=== PATIENT | female | born 1960 | race Hispanic/Latino ===

== ENCOUNTER 2021-04-18 19:47 | Emergency (ER) | payer OTHER ==
[~2021-04-18] VITALS: Ht 157.5 cm; Wt 79.0 kg
[~2021-04-18 19:47] MED LIST: ASPIRIN EC81 MG PO; GLYNASE3 MG PO; JANUVIA100 MG PO; METFORMIN500 MG PO; PRAVACHOL20 MG PO; XIGDUO PO
[2021-04-18 20:38] LABS: HEMATOCRIT 35.9 % (37.0-47.0); IMMATURE GRANULOCYTES 0.4 % (0.0-5.0); MEAN CORPUSCULAR HGB 28.9 pG CALC (26.0-32.0); MEAN CORPUSCULAR HGB CONC 32.9 g/dL CAL (32.0-36.0); NEUT# 14.36 thou/uL (2.00-7.15); RED BLOOD COUNT 4.08 mill/uL (4.20-5.60); RED CELL DISTRI WIDTH 13.1 % (11.5-15.5)
[2021-04-18 20:39] LABS: HEMOGLOBIN 11.8 g/dl (12.0-16.0)
[2021-04-18 20:58] LABS: ALBUMIN 3.6 g/dL (3.2-5.0); ALKALINE PHOSPHATASE 132 u/l (38-126); BUN 19 mg/dL (8-23); BUN/CREATININE RATIO 31 (12-20 (CALC)); CARBON DIOXIDE 26 mmol/l (22-30); CHLORIDE 97 mmol/l (95-108); CREATININE 0.6 mg/dL (0.5-1.0); GFR > 60 ML/MIN (>=60 (CALC)); GFR FOR AFR.AMER. > 60 ML/MIN (>=60 (CALC)); POTASSIUM 4.5 mmol/l (3.5-5.1); SGOT/AST 27 u/l (9-36); TOTAL PROTEIN 6.8 g/dL (6.3-8.2)
[2021-04-18 21:02] LABS: ANION GAP 11 (6-22 (CALC)); BILIRUBIN, TOTAL 0.9 mg/dL (0.0-1.4); SODIUM 129 mmol/l (137-146)
[2021-04-18 23:12] LABS: URINE BILIRUBIN - DIPSTICK NEGATIVE (NEGATIVE); URINE BLOOD DIPSTICK NEGATIVE (NEGATIVE); URINE COLOR YELLOW; URINE GLUCOSE - DIPSTICK >=1000 mg/dL (NEGATIVE); URINE KETONE NEGATIVE (NEGATIVE); URINE LEUK ESTERASE NEGATIVE (NEGATIVE); URINE PH 6.5 (4.5-8.0); URINE PROTEIN - DIPSTICK NEGATIVE (NEG-TRACE); URINE SPECIFIC GRAVITY <=1.005; URINE UROBILINOGEN - DIPSTICK 0.2 E.U./dL (0.2)
[2021-04-18 23:13] LABS: URINE NITRITE - DIPSTICK NEGATIVE (Negative)
[2021-04-19] MEDS ORDERED: AUGMENTIN500TAB PO (00:44)
[2021-04-19 01:00] VITALS: BP 113/53
== END 2021-04-19 01:00 | disposition home or self-care (01) ==
LOC: ED 19:47
PROVIDERS: Emergency Medicine
DX: R50.9 Fever, unspecified (principal); D72.829 Elevated white blood cell count, unspecified; R10.30 Lower abdominal pain, unspecified; N32.9 Bladder disorder, unspecified; Z20.822 Contact with and (suspected) exposure to COVID-19
CPT/HCPCS: Q9967

== ENCOUNTER 2023-11-24 12:03 | Inpatient (IN) | payer MEDICARE, MEDICAID ==
[~2023-11-24] VITALS: Ht 157.5 cm; Wt 72.0 kg
[2023-11-24] VITALS (7 sets, daily range): BP systolic 125–143; BP diastolic 48–73
[~2023-11-24 12:03] MED LIST changes: +AUGMENTIN500TAB PO
[2023-11-24 13:16] LABS: BASO% 0.4 % (0-3); EOS% 0.4 % (0-8); HEMATOCRIT 34.1 % (37.0-47.0); HEMOGLOBIN 11.3 g/dl (12.0-16.0); IMMATURE GRANULOCYTES 0.3 % (0.0-5.0); MEAN CELL VOLUME 85.9 fL CALC (80.0-100.0); MEAN CORPUSCULAR HGB 28.5 pG CALC (26.0-32.0); MEAN CORPUSCULAR HGB CONC 33.1 g/dL CAL (32.0-36.0); MONO% 4.3 % (2-13); NEUT# 9.74 thou/uL (2.00-7.15); NEUT% 78.6 % (42-76); RED BLOOD COUNT 3.97 mill/uL (4.20-5.60)
[2023-11-24 13:25] LABS: ALBUMIN 3.7 g/dL (3.2-5.0); ALKALINE PHOSPHATASE 133 u/l (38-126); BUN 17 mg/dL (8-23); BUN/CREATININE RATIO 23 (12-20 (CALC)); CARBON DIOXIDE 23 mmol/l (22-30); CHLORIDE 97 mmol/l (95-108); CREATININE 0.7 mg/dL (0.5-1.0); GFR FOR AFR.AMER. > 60 ML/MIN (>=60 (CALC)); GFR OTHER RACES > 60 ML/MIN (>=60 (CALC)); POTASSIUM 4.8 mmol/l (3.5-5.1); SGOT/AST 17 u/l (9-36)
[2023-11-24 13:31] LABS: ANION GAP 12 (6-22 (CALC)); BILIRUBIN, TOTAL 0.4 mg/dL (0.02-1.3); SODIUM 127 mmol/l (137-146)
[2023-11-24] MEDS ORDERED: LISINOPRIL20 M1 PO (14:08)
[2023-11-24] MEDS ORDERED: METFORMIN HCL1000 MG PO (14:09)
[2023-11-24] MEDS ORDERED: LEVOTHYROXIN75 MC1 PO (14:10)
[2023-11-24] MEDS ORDERED: AMLODIPINE BESYL5 MG PO (14:11)
[2023-11-24] MEDS ORDERED: GLIMEPIRIDE4 MG PO (14:12)
[2023-11-25] VITALS (9 sets, daily range): BP systolic 118–151; BP diastolic 49–68
[2023-11-25 04:39] LABS: BASO% 0.8 % (0-3); EOS% 0.9 % (0-8); HEMATOCRIT 36.2 % (37.0-47.0); HEMOGLOBIN 11.5 g/dl (12.0-16.0); IMMATURE GRANULOCYTES 0.4 % (0.0-5.0); LYMPH% 20.2 % (15-41); MEAN CORPUSCULAR HGB 28.6 pG CALC (26.0-32.0); MEAN CORPUSCULAR HGB CONC 31.8 g/dL CAL (32.0-36.0); MONO% 5.7 % (2-13); NEUT# 5.71 thou/uL (2.00-7.15); RED BLOOD COUNT 4.02 mill/uL (4.20-5.60); RED CELL DISTRI WIDTH 13.5 % (11.5-15.5)
[2023-11-25 05:04] LABS: ANION GAP 12 (6-22 (CALC)); BUN 12 mg/dL (8-23); BUN/CREATININE RATIO 20 (12-20 (CALC)); CARBON DIOXIDE 21 mmol/l (22-30); CHLORIDE 105 mmol/l (95-108); CREATININE 0.6 mg/dL (0.5-1.0); GFR FOR AFR.AMER. > 60 ML/MIN (>=60 (CALC)); GFR OTHER RACES > 60 ML/MIN (>=60 (CALC)); POTASSIUM 5.1 mmol/l (3.5-5.1); SODIUM 133 mmol/l (137-146)
[2023-11-26 03:21] VITALS: BP 156/57
[2023-11-26 05:54] LABS: BASO% 0.5 % (0-3); EOS% 0.4 % (0-8); HEMOGLOBIN 9.9 g/dl (12.0-16.0); IMMATURE GRANULOCYTES 0.3 % (0.0-5.0); LYMPH% 17.1 % (15-41); MEAN CELL VOLUME 86.3 fL CALC (80.0-100.0); MEAN CORPUSCULAR HGB 28.3 pG CALC (26.0-32.0); MEAN CORPUSCULAR HGB CONC 32.8 g/dL CAL (32.0-36.0); NEUT# 7.42 thou/uL (2.00-7.15); NEUT% 74.7 % (42-76); RED BLOOD COUNT 3.5 mill/uL (4.20-5.60); RED CELL DISTRI WIDTH 12.8 % (11.5-15.5)
[2023-11-26 06:27] LABS: ANION GAP 10 (6-22 (CALC)); BUN 5 mg/dL (8-23); BUN/CREATININE RATIO 10 (12-20 (CALC)); CARBON DIOXIDE 21 mmol/l (22-30); CHLORIDE 105 mmol/l (95-108); CREATININE 0.6 mg/dL (0.5-1.0); GFR FOR AFR.AMER. > 60 ML/MIN (>=60 (CALC)); GFR OTHER RACES > 60 ML/MIN (>=60 (CALC)); MAGNESIUM 1.3 mg/dL (1.6-2.3); POTASSIUM 4.3 mmol/l (3.5-5.1); SODIUM 131 mmol/l (137-146)
[2023-11-26 06:37] LABS: HEMATOCRIT 30.2 % (37.0-47.0)
[2023-11-26 08:00] VITALS: BP 131/54
[2023-11-26 08:49] VITALS: BP 131/54
[2023-11-26 16:23] VITALS: BP 128/48
[2023-11-26 19:34] VITALS: BP 135/55
[2023-11-27 03:21] VITALS: BP 127/58
[2023-11-27 06:10] LABS: BASO% 0.5 % (0-3); EOS% 1.5 % (0-8); HEMATOCRIT 29.2 % (37.0-47.0); HEMOGLOBIN 9.8 g/dl (12.0-16.0); IMMATURE GRANULOCYTES 0.3 % (0.0-5.0); LYMPH% 23.6 % (15-41); MEAN CELL VOLUME 87.7 fL CALC (80.0-100.0); MEAN CORPUSCULAR HGB 29.4 pG CALC (26.0-32.0); MEAN CORPUSCULAR HGB CONC 33.6 g/dL CAL (32.0-36.0); MONO% 6.8 % (2-13); NEUT# 4.92 thou/uL (2.00-7.15); NEUT% 67.3 % (42-76); RED BLOOD COUNT 3.33 mill/uL (4.20-5.60)
[2023-11-27 06:26] LABS: ANION GAP 9 (6-22 (CALC)); BUN 5 mg/dL (8-23); BUN/CREATININE RATIO 8 (12-20 (CALC)); CARBON DIOXIDE 21 mmol/l (22-30); CHLORIDE 107 mmol/l (95-108); CREATININE 0.6 mg/dL (0.5-1.0); GFR FOR AFR.AMER. > 60 ML/MIN (>=60 (CALC)); GFR OTHER RACES > 60 ML/MIN (>=60 (CALC)); SODIUM 134 mmol/l (137-146)
[2023-11-27 06:30] VITALS: BP 128/62
[2023-11-27 15:00] VITALS: BP 135/54
[2023-11-27 19:17] VITALS: BP 113/46
[2023-11-27 20:00] VITALS: BP 113/46
[2023-11-28 04:16] VITALS: BP 134/58
[2023-11-28 04:52] VITALS: BP 134/58
[2023-11-28 05:33] LABS: BASO% 0.8 % (0-3); EOS% 2.6 % (0-8); IMMATURE GRANULOCYTES 0.5 % (0.0-5.0); LYMPH% 27.3 % (15-41); MEAN CELL VOLUME 87.5 fL CALC (80.0-100.0); MEAN CORPUSCULAR HGB 29.2 pG CALC (26.0-32.0); MEAN CORPUSCULAR HGB CONC 33.3 g/dL CAL (32.0-36.0); MONO% 7.9 % (2-13); NEUT% 60.9 % (42-76); RED BLOOD COUNT 3.43 mill/uL (4.20-5.60); RED CELL DISTRI WIDTH 12.8 % (11.5-15.5)
[2023-11-28 05:49] LABS: ANION GAP 9 (6-22 (CALC)); BUN 7 mg/dL (8-23); BUN/CREATININE RATIO 12 (12-20 (CALC)); CARBON DIOXIDE 24 mmol/l (22-30); CHLORIDE 107 mmol/l (95-108); CREATININE 0.6 mg/dL (0.5-1.0); GFR FOR AFR.AMER. > 60 ML/MIN (>=60 (CALC)); GFR OTHER RACES > 60 ML/MIN (>=60 (CALC)); POTASSIUM 4.3 mmol/l (3.5-5.1); SODIUM 136 mmol/l (137-146)
[2023-11-28 07:17] VITALS: BP 129/52
[2023-11-28] MEDS ORDERED: ROCEPHIN1 G1 IV (14:31)
[2023-11-28 19:15] VITALS: BP 123/53
[2023-11-29 04:34] VITALS: BP 147/63
[2023-11-29 05:45] LABS: BASO% 0.4 % (0-3); EOS% 2.3 % (0-8); HEMOGLOBIN 9.7 g/dl (12.0-16.0); IMMATURE GRANULOCYTES 0.3 % (0.0-5.0); LYMPH% 27.6 % (15-41); MEAN CORPUSCULAR HGB 28.1 pG CALC (26.0-32.0); MEAN CORPUSCULAR HGB CONC 32.3 g/dL CAL (32.0-36.0); MONO% 6.6 % (2-13); NEUT# 4.6 thou/uL (2.00-7.15); NEUT% 62.8 % (42-76); RED BLOOD COUNT 3.45 mill/uL (4.20-5.60); RED CELL DISTRI WIDTH 12.8 % (11.5-15.5)
[2023-11-29 06:07] LABS: ALKALINE PHOSPHATASE 96 u/l (38-126); ANION GAP 7 (6-22 (CALC)); BUN 8 mg/dL (8-23); BUN/CREATININE RATIO 14 (12-20 (CALC)); CARBON DIOXIDE 25 mmol/l (22-30); CHLORIDE 107 mmol/l (95-108); CREATININE 0.6 mg/dL (0.5-1.0); GFR FOR AFR.AMER. > 60 ML/MIN (>=60 (CALC)); GFR OTHER RACES > 60 ML/MIN (>=60 (CALC)); POTASSIUM 4.2 mmol/l (3.5-5.1); SGOT/AST 23 u/l (9-36); SODIUM 135 mmol/l (137-146)
[2023-11-29 06:41] VITALS: BP 138/66
[2023-11-29 06:44] LABS: ALBUMIN 2.5 g/dL (3.2-5.0); TOTAL PROTEIN 5.5 g/dL (6.3-8.2)
[2023-11-29 08:01] VITALS: BP 138/66
== END 2023-11-29 15:20 | DRG 629 ==
LOC: ED 12:03 → ED-I 13:24 → ED 13:24 → MS2 14:09
PROVIDERS: Family Medicine; Nurse Practitioner Family; ADMIT Student in an Organized Health Care Education/Training Program; ATTEND Student in an Organized Health Care Education/Training Program
PROC: 0H9MXZZ Drainage of Right Foot Skin, External Approach (ICD-10-PCS; principal; 2023-11-24)
PROC: 0QBN0Z2 Excision of Right Metatarsal, Sesamoid Bone(s) 1st Toe, Open Approach (ICD-10-PCS; 2023-11-25)
PROC: 0S9M0ZX Drainage of Right Metatarsal-Phalangeal Joint, Open Approach, Diagnostic (ICD-10-PCS; 2023-11-25)
PROC: 02HV33Z Insertion of Infusion Device into Superior Vena Cava, Percutaneous Approach (ICD-10-PCS; 2023-11-29)
PROC: B518ZZA Fluoroscopy of Superior Vena Cava, Guidance (ICD-10-PCS; 2023-11-29)
DX: E11.69 Type 2 diabetes mellitus with other specified complication (principal); L02.611 Cutaneous abscess of right foot; L03.115 Cellulitis of right lower limb; L97.419 Non-pressure chronic ulcer of right heel and midfoot with unspecified severity; M86.671 Other chronic osteomyelitis, right ankle and foot; B95.1 Streptococcus, group B, as the cause of diseases classified elsewhere; E11.628 Type 2 diabetes mellitus with other skin complications; E11.621 Type 2 diabetes mellitus with foot ulcer; I10 Essential (primary) hypertension; E03.9 Hypothyroidism, unspecified; Z79.84 Long term (current) use of oral hypoglycemic drugs
CPT/HCPCS: J0131; J0692; J1650; J3475

== ENCOUNTER 2024-04-27 12:59 | Emergency (ER) | payer MEDICARE, MEDICAID ==
[~2024-04-27] VITALS: Ht 157.5 cm; Wt 76.3 kg
[~2024-04-27 12:59] MED LIST changes: +AMLODIPINE BESYL5 MG PO; +GLIMEPIRIDE4 MG PO; +LEVOTHYROXIN75 MC1 PO; +LISINOPRIL20 M1 PO; +METFORMIN HCL1000 MG PO; +ROCEPHIN1 G1 IV
[2024-04-27 14:08] LABS: BASO% 0.1 % (0-3); IMMATURE GRANULOCYTES 0.2 % (0.0-5.0); LYMPH% 4.9 % (15-41); MEAN CELL VOLUME 84.9 fL CALC (80.0-100.0); MEAN CORPUSCULAR HGB 28.4 pG CALC (26.0-32.0); MEAN CORPUSCULAR HGB CONC 33.4 g/dL CAL (32.0-36.0); MONO% 4.2 % (2-13); NEUT# 13.35 thou/uL (2.00-7.15); NEUT% 90.6 % (42-76); RED BLOOD COUNT 3.38 mill/uL (4.20-5.60); RED CELL DISTRI WIDTH 13.6 % (11.5-15.5)
[2024-04-27 14:12] LABS: HEMATOCRIT 28.7 % (37.0-47.0); HEMOGLOBIN 9.6 g/dl (12.0-16.0)
[2024-04-27 14:13] LABS: CREATININE 1.3 mg/dL (0.5-1.0); POTASSIUM 4.4 mmol/l (3.5-5.1); TOTAL PROTEIN 6.6 g/dL (6.3-8.2)
[2024-04-27 14:16] LABS: ALBUMIN 3.6 g/dL (3.2-5.0); BILIRUBIN, TOTAL 0.8 mg/dL (0.02-1.3)
[2024-04-27 14:52] LABS: URINE BLOOD DIPSTICK Trace-lysed (NEGATIVE); URINE GLUCOSE - DIPSTICK >=1000 mg/dL (NEGATIVE); URINE KETONE Trace mg/dL (NEGATIVE); URINE LEUK ESTERASE Trace (NEGATIVE); URINE NITRITE - DIPSTICK Negative (Negative); URINE PH 5.5 (4.5-8.0); URINE PROTEIN - DIPSTICK 30 mg/dL (NEG-TRACE); URINE SPECIFIC GRAVITY 1.015
[2024-04-27 14:53] LABS: URINE COLOR Yellow
[2024-04-27 15:02] LABS: URINE BACTERIA FEW hpf; URINE RBC 0-2 RBC/hpf (0-5); URINE SQUAMOUS EPITHELIAL CELL FEW EPI/hpf (0-FEW); URINE WBC 0-2 WBC/hpf (0-5)
[2024-04-27] MEDS ORDERED: DOXYCYCLINE HYCLATE 100 MG/CAP PO ONE (15:25)
[2024-04-27] MEDS ORDERED: VIBRAMYCIN100 M2 PO (15:32)
[2024-04-27 15:40] VITALS: BP 126/52
--- NOTE | 2024-04-29 11:14 | NUR ---
PRELIMINARY CULTURE RESULTS GIVEN TO DR BLANDON. WAIT UNTIL FINAL SENSITIVITIES
== END 2024-04-27 15:42 | disposition home or self-care (01) ==
LOC: ED 12:59
PROVIDERS: Nurse Practitioner
DX: U07.1 COVID-19 (principal); R50.9 Fever, unspecified; R05.9 Cough, unspecified; R52 Pain, unspecified; L03.115 Cellulitis of right lower limb; I10 Essential (primary) hypertension; E11.9 Type 2 diabetes mellitus without complications; Z79.84 Long term (current) use of oral hypoglycemic drugs

== ENCOUNTER 2024-04-30 10:30 | Inpatient (IN) | payer MEDICARE, MEDICAID ==
[2024-04-30] VITALS (25 sets, daily range): BP systolic 102–165; BP diastolic 28–142
[~2024-04-30] VITALS: Ht 157.5 cm; Wt 80.5 kg
[~2024-04-30 10:30] MED LIST changes: +VIBRAMYCIN100 M2 PO
[2024-04-30 11:26] LABS: URINE BILIRUBIN - DIPSTICK Negative (NEGATIVE); URINE BLOOD DIPSTICK Negative (NEGATIVE); URINE GLUCOSE - DIPSTICK 100 mg/dL (NEGATIVE); URINE KETONE Negative (NEGATIVE); URINE NITRITE - DIPSTICK Negative (Negative); URINE PH 5.5 (4.5-8.0); URINE PROTEIN - DIPSTICK Trace mg/dL (NEG-TRACE)
[2024-04-30 11:27] LABS: BASO% 0.3 % (0-3); EOS% 0.5 % (0-8); HEMATOCRIT 30.3 % (37.0-47.0); HEMOGLOBIN 10.1 g/dl (12.0-16.0); IMMATURE GRANULOCYTES 0.8 % (0.0-5.0); LYMPH% 16.9 % (15-41); MEAN CELL VOLUME 83.7 fL CALC (80.0-100.0); MEAN CORPUSCULAR HGB 27.9 pG CALC (26.0-32.0); MEAN CORPUSCULAR HGB CONC 33.3 g/dL CAL (32.0-36.0); MONO% 7.1 % (2-13); NEUT# 7.9 thou/uL (2.00-7.15); NEUT% 74.4 % (42-76); RED BLOOD COUNT 3.62 mill/uL (4.20-5.60); RED CELL DISTRI WIDTH 13.2 % (11.5-15.5); URINE COLOR Yellow; URINE LEUK ESTERASE Small (NEGATIVE)
[2024-04-30] MEDS ORDERED: VANCOMYCIN HCL 1 GM in SODIUM CHLORIDE 0.9% 250 ML IV ONE (11:30)
[2024-04-30] MEDS ORDERED: PIPERACILLIN Sodium-Tazobactam 3.375 GM in SODIUM CHLORIDE 0.9% 100 ML IV ONE (11:30)
[2024-04-30 11:37] LABS: URINE BACTERIA FEW hpf; URINE SQUAMOUS EPITHELIAL CELL FEW EPI/hpf (0-FEW); URINE WBC 0-2 WBC/hpf (0-5)
[2024-04-30 12:05] LABS: ALBUMIN 3.6 g/dL (3.2-5.0); BILIRUBIN, TOTAL 0.5 mg/dL (0.02-1.3); CREATININE 1.5 mg/dL (0.5-1.0); POTASSIUM 4.2 mmol/l (3.5-5.1); TOTAL PROTEIN 7.1 g/dL (6.3-8.2)
[2024-04-30] MEDS ORDERED: SODIUM CHLORIDE 0.9% 1,000 ML IV ONE (12:20)
[2024-04-30] MEDS ORDERED: ACETAMINOPHEN 325 MG/TAB PO PRN (14:35)
[2024-04-30] MEDS ORDERED: MAGNESIUM HYDROXIDE 30 ML UDC PO PRN (14:35)
[2024-04-30] MEDS ORDERED: SODIUM CHLORIDE 0.9% 1,000 ML IV PRN (14:35)
[2024-04-30] MEDS ORDERED: ONDANSETRON HCl 4 MG/2 ML SDV IV PRN (14:40)
[2024-04-30] MEDS ORDERED: hydrALAZINE HCL 20 MG/ML VIAL(1 ML) IV PRN (14:40)
[2024-04-30] MEDS ORDERED: Heparin SODIUM (Porcine) 5,000 UNITS/ML SDV SC SCH (15:00)
[2024-04-30] MEDS ORDERED: CEFEPIME HYDROCHLORIDE 1 GM in SODIUM CHLORIDE 0.9% 50 ML IV SCH (15:30)
[2024-04-30] MEDS ORDERED: CLINDAMYCIN PHOSPHATE 50 ML IV SCH (16:30)
[2024-04-30] MEDS ORDERED: INSULIN LISPRO 100 UNITS/ML ML SC SCH (17:00)
[2024-05-01] VITALS (10 sets, daily range): BP systolic 138–157; BP diastolic 51–61
[2024-05-01 05:53] LABS: BASO% 0.4 % (0-3); EOS% 1.6 % (0-8); HEMATOCRIT 25.5 % (37.0-47.0); HEMOGLOBIN 8.6 g/dl (12.0-16.0); IMMATURE GRANULOCYTES 1.4 % (0.0-5.0); LYMPH% 25.3 % (15-41); MEAN CELL VOLUME 84.7 fL CALC (80.0-100.0); MEAN CORPUSCULAR HGB 28.6 pG CALC (26.0-32.0); MEAN CORPUSCULAR HGB CONC 33.7 g/dL CAL (32.0-36.0); MONO% 7.8 % (2-13); NEUT# 5.27 thou/uL (2.00-7.15); NEUT% 63.5 % (42-76); RED BLOOD COUNT 3.01 mill/uL (4.20-5.60); RED CELL DISTRI WIDTH 13.5 % (11.5-15.5)
[2024-05-01] MEDS ORDERED: LEVOTHYROXINE SODIUM 75 MCG/TAB PO SCH (06:00)
[2024-05-01 06:08] LABS: CREATININE 1.4 mg/dL (0.5-1.0); POTASSIUM 4.3 mmol/l (3.5-5.1)
[2024-05-01 06:09] LABS: ACT PARTIAL THROMBO TIME 23.3 SECONDS (20.0-32.5); ALBUMIN 2.7 g/dL (3.2-5.0); BILIRUBIN, TOTAL 0.2 mg/dL (0.02-1.3); MAGNESIUM 1.9 mg/dL (1.6-2.3); TOTAL PROTEIN 5.6 g/dL (6.3-8.2)
[2024-05-01 06:16] LABS: PROTHROMBIN TIME 9.4 SECONDS (9.0-12.5)
[2024-05-01] MEDS ORDERED: LISINOPRIL 20 MG/TAB PO SCH (09:00)
[2024-05-01] MEDS ORDERED: amLODIPine BESYLATE 5 MG/TAB PO SCH (09:00)
[2024-05-01] MEDS ORDERED: INSULIN DETEMIR 100 UNITS/ML SC SCH (10:00)
[2024-05-01] MEDS ORDERED: VANCOMYCIN HCL 1 GM in SODIUM CHLORIDE 0.9% 250 ML IV SCH (12:00)
[2024-05-02] VITALS (7 sets, daily range): BP systolic 144–165; BP diastolic 51–60
[2024-05-02 06:18] LABS: BASO% 0.5 % (0-3); EOS% 2.5 % (0-8); HEMATOCRIT 23.8 % (37.0-47.0); HEMOGLOBIN 7.9 g/dl (12.0-16.0); IMMATURE GRANULOCYTES 3.6 % (0.0-5.0); LYMPH% 30.2 % (15-41); MEAN CELL VOLUME 85.3 fL CALC (80.0-100.0); MEAN CORPUSCULAR HGB 28.3 pG CALC (26.0-32.0); MEAN CORPUSCULAR HGB CONC 33.2 g/dL CAL (32.0-36.0); MONO% 8.3 % (2-13); NEUT# 4.55 thou/uL (2.00-7.15); NEUT% 54.9 % (42-76); RED BLOOD COUNT 2.79 mill/uL (4.20-5.60); RED CELL DISTRI WIDTH 13.8 % (11.5-15.5)
[2024-05-02 06:35] LABS: ALBUMIN 2.5 g/dL (3.2-5.0); BILIRUBIN, TOTAL 0.2 mg/dL (0.02-1.3); CREATININE 1.2 mg/dL (0.5-1.0); MAGNESIUM 1.8 mg/dL (1.6-2.3); POTASSIUM 4.3 mmol/l (3.5-5.1); TOTAL PROTEIN 5.4 g/dL (6.3-8.2)
[2024-05-02] MEDS ORDERED: YEAST (S. BOULARDII)(S. CEREVI 250 MG CAP PO SCH (09:00)
[2024-05-02] MEDS ORDERED: Meropenem 1 GM in SODIUM CHLORIDE 0.9% 100 ML IV SCH (09:00)
[2024-05-02] MEDS ORDERED: Pantoprazole Sodium 40 MG VIAL (Protonix) IV SCH (10:00)
[2024-05-03] VITALS (14 sets, daily range): BP systolic 144–181; BP diastolic 48–66
[2024-05-03 05:51] LABS: BASO% 0.6 % (0-3); EOS% 1.9 % (0-8); HEMATOCRIT 26.8 % (37.0-47.0); HEMOGLOBIN 8.8 g/dl (12.0-16.0); IMMATURE GRANULOCYTES 3.5 % (0.0-5.0); LYMPH% 23.7 % (15-41); MEAN CORPUSCULAR HGB 28.6 pG CALC (26.0-32.0); MEAN CORPUSCULAR HGB CONC 32.8 g/dL CAL (32.0-36.0); MONO% 7.7 % (2-13); NEUT# 5.2 thou/uL (2.00-7.15); NEUT% 62.6 % (42-76); RED BLOOD COUNT 3.08 mill/uL (4.20-5.60); RED CELL DISTRI WIDTH 13.9 % (11.5-15.5)
[2024-05-03 05:59] LABS: ALBUMIN 2.6 g/dL (3.2-5.0); BILIRUBIN, TOTAL 0.2 mg/dL (0.02-1.3); CREATININE 1.3 mg/dL (0.5-1.0); MAGNESIUM 1.8 mg/dL (1.6-2.3); POTASSIUM 4.7 mmol/l (3.5-5.1); TOTAL PROTEIN 5.7 g/dL (6.3-8.2)
[2024-05-03] MEDS ORDERED: BUPIVACAINE HCL PF 0.5% 30 ML VIAL ONE (07:35)
[2024-05-03] MEDS ORDERED: STERILE WATER FOR IRRIGATION 1,000 ML BTL IR ONE (07:36)
[2024-05-03] MEDS ORDERED: SODIUM CHLORIDE 1,000 ML BTL IR ONE (07:36)
[2024-05-03] MEDS ORDERED: METOCLOPRAMIDE HCL 10 MG/2 ML SDV ONE (11:18)
[2024-05-03] MEDS ORDERED: SODIUM CHLORIDE 0.9% 50 ML IV ONE (11:19)
[2024-05-03] MEDS ORDERED: FAMOTIDINE 10MG/ML 2ML SDV IV ONE (11:19)
[2024-05-03] MEDS ORDERED: Polyethylene Glycol 3350 17 GM/PKT PO PRN (15:20)
[2024-05-03] MEDS ORDERED: BISACODYL 10 MG SUPP RE PRN (15:20)
[2024-05-03] MEDS ORDERED: ePHEDrine SULFATE 50 MG/ML AMP IV ONE (15:32)
[2024-05-03] MEDS ORDERED: LIDOCAINE HCL 2% 2ML SDV IV ONE (15:32)
[2024-05-03] MEDS ORDERED: ONDANSETRON HCl 4 MG/2 ML SDV IV ONE (15:32)
[2024-05-03] MEDS ORDERED: ACETAMINOPHEN 1,000 MG/100 ML VIAL IV ONE (15:32)
[2024-05-03] MEDS ORDERED: SODIUM CHLORIDE 0.9% 1,000 ML BAG IV ONE (15:32)
[2024-05-03] MEDS ORDERED: PROPOFOL 200 MG/20 ML VIAL IV ONE (15:32)
[2024-05-03] MEDS ORDERED: Meropenem 1 GM in SODIUM CHLORIDE 0.9% 100 ML IV SCH (21:00)
[2024-05-04] VITALS (9 sets, daily range): BP systolic 150–174; BP diastolic 41–60
[2024-05-04 05:28] LABS: ALBUMIN 2.5 g/dL (3.2-5.0); BILIRUBIN, TOTAL 0.2 mg/dL (0.02-1.3); MAGNESIUM 1.8 mg/dL (1.6-2.3); POTASSIUM 4.7 mmol/l (3.5-5.1); TOTAL PROTEIN 5.6 g/dL (6.3-8.2)
[2024-05-04 05:32] LABS: BASO% 0.4 % (0-3); EOS% 1.4 % (0-8); HEMATOCRIT 25.4 % (37.0-47.0); HEMOGLOBIN 8.4 g/dl (12.0-16.0); IMMATURE GRANULOCYTES 1.9 % (0.0-5.0); LYMPH% 18.1 % (15-41); MEAN CELL VOLUME 87.6 fL CALC (80.0-100.0); MEAN CORPUSCULAR HGB CONC 33.1 g/dL CAL (32.0-36.0); NEUT# 6.43 thou/uL (2.00-7.15); NEUT% 71.2 % (42-76); RED BLOOD COUNT 2.9 mill/uL (4.20-5.60)
[2024-05-05] VITALS (11 sets, daily range): BP systolic 148–176; BP diastolic 53–67
[2024-05-05 05:37] LABS: BASO% 0.7 % (0-3); HEMATOCRIT 23.1 % (37.0-47.0); HEMOGLOBIN 7.3 g/dl (12.0-16.0); IMMATURE GRANULOCYTES 1.2 % (0.0-5.0); LYMPH% 27.8 % (15-41); MEAN CELL VOLUME 89.9 fL CALC (80.0-100.0); MEAN CORPUSCULAR HGB 28.4 pG CALC (26.0-32.0); MEAN CORPUSCULAR HGB CONC 31.6 g/dL CAL (32.0-36.0); MONO% 6.6 % (2-13); NEUT# 4.27 thou/uL (2.00-7.15); NEUT% 61.7 % (42-76); RED BLOOD COUNT 2.57 mill/uL (4.20-5.60); RED CELL DISTRI WIDTH 14.3 % (11.5-15.5)
[2024-05-05 05:50] LABS: ALBUMIN 2.3 g/dL (3.2-5.0); BILIRUBIN, TOTAL 0.2 mg/dL (0.02-1.3); CREATININE 1.1 mg/dL (0.5-1.0); MAGNESIUM 1.9 mg/dL (1.6-2.3); POTASSIUM 4.5 mmol/l (3.5-5.1); TOTAL PROTEIN 5.2 g/dL (6.3-8.2)
[2024-05-05] MEDS ORDERED: FUROSEMIDE 40 MG/4 ML SDV IV SCH (09:00)
[2024-05-05] MEDS ORDERED: INSULIN DETEMIR 100 UNITS/ML SC SCH (09:00)
[2024-05-05] MEDS ORDERED: cefTRIAXone SODIUM 2 GM in SODIUM CHLORIDE 0.9% 100 ML IV SCH (10:00)
[2024-05-05] MEDS ORDERED: SODIUM CHLORIDE 0.9% 500 ML IV SCH (10:05)
[2024-05-05 11:07] LABS: URINE BILIRUBIN - DIPSTICK Negative (NEGATIVE); URINE BLOOD DIPSTICK Moderate (NEGATIVE); URINE GLUCOSE - DIPSTICK Negative (NEGATIVE); URINE KETONE Negative (NEGATIVE); URINE LEUK ESTERASE Trace (NEGATIVE); URINE NITRITE - DIPSTICK Negative (Negative); URINE PH 5.5 (4.5-8.0); URINE PROTEIN - DIPSTICK 30 mg/dL (NEG-TRACE); URINE SPECIFIC GRAVITY 1.025; URINE UROBILINOGEN - DIPSTICK 0.2 E.U./dL (0.2)
[2024-05-05 11:10] LABS: URINE COLOR Yellow
[2024-05-05 11:42] LABS: URINE BACTERIA RARE hpf; URINE SQUAMOUS EPITHELIAL CELL FEW EPI/hpf (0-FEW); URINE WBC 0-2 WBC/hpf (0-5)
[2024-05-05] MEDS ORDERED: FUROSEMIDE 40 MG/4 ML SDV ONE (16:06)
[2024-05-06 00:01] VITALS: BP 189/66
[2024-05-06 00:03] VITALS: BP 152/54
[2024-05-06 04:45] VITALS: BP 152/55
[2024-05-06 05:57] LABS: BASO% 0.4 % (0-3); EOS% 1.9 % (0-8); IMMATURE GRANULOCYTES 0.8 % (0.0-5.0); LYMPH% 22.4 % (15-41); MEAN CELL VOLUME 86.9 fL CALC (80.0-100.0); MEAN CORPUSCULAR HGB 28.9 pG CALC (26.0-32.0); MEAN CORPUSCULAR HGB CONC 33.2 g/dL CAL (32.0-36.0); MONO% 6.5 % (2-13); NEUT# 5.09 thou/uL (2.00-7.15); RED BLOOD COUNT 3.43 mill/uL (4.20-5.60); RED CELL DISTRI WIDTH 14.1 % (11.5-15.5)
[2024-05-06 06:05] LABS: ALBUMIN 2.4 g/dL (3.2-5.0); BILIRUBIN, TOTAL 0.2 mg/dL (0.02-1.3); CREATININE 1.2 mg/dL (0.5-1.0); MAGNESIUM 1.9 mg/dL (1.6-2.3); POTASSIUM 4.5 mmol/l (3.5-5.1); TOTAL PROTEIN 5.5 g/dL (6.3-8.2)
[2024-05-06 06:08] LABS: HEMATOCRIT 29.8 % (37.0-47.0); HEMOGLOBIN 9.9 g/dl (12.0-16.0)
[2024-05-06 07:28] VITALS: BP 157/59
[2024-05-06] MEDS ORDERED: amLODIPine BESYLATE 5 MG/TAB PO SCH (09:00)
[2024-05-06 10:19] VITALS: BP 138/76
[2024-05-06] MEDS ORDERED: NORVASC10 M1 PO (11:45)
[2024-05-06] MEDS ORDERED: CEFTRIAXONE2 GM IV (11:46)
== END 2024-05-06 14:41 | disposition home or self-care (01) | DRG 616 ==
LOC: ED 10:30 → ED-I 13:50 → ED 14:16 → MS2 14:17
PROVIDERS: Family Medicine; Nurse Practitioner Family; ADMIT Student in an Organized Health Care Education/Training Program; ATTEND Student in an Organized Health Care Education/Training Program
PROC: 02HV33Z Insertion of Infusion Device into Superior Vena Cava, Percutaneous Approach (ICD-10-PCS; 2024-05-02)
PROC: B518ZZA Fluoroscopy of Superior Vena Cava, Guidance (ICD-10-PCS; 2024-05-02)
PROC: 0Y6P0Z0 Detachment at Right 1st Toe, Complete, Open Approach (ICD-10-PCS; principal; 2024-05-03)
PROC: 0QBN0Z2 Excision of Right Metatarsal, Sesamoid Bone(s) 1st Toe, Open Approach (ICD-10-PCS; 2024-05-03)
PROC: 0HXMXZZ Transfer Right Foot Skin, External Approach (ICD-10-PCS; 2024-05-03)
PROC: 0JBQ0ZZ Excision of Right Foot Subcutaneous Tissue and Fascia, Open Approach (ICD-10-PCS; 2024-05-03)
PROC: 0J9Q0ZZ Drainage of Right Foot Subcutaneous Tissue and Fascia, Open Approach (ICD-10-PCS; 2024-05-03)
PROC: 30243N1 Transfusion of Nonautologous Red Blood Cells into Central Vein, Percutaneous Approach (ICD-10-PCS; 2024-05-05)
PROC: 30243N1 Transfusion of Nonautologous Red Blood Cells into Central Vein, Percutaneous Approach (ICD-10-PCS; 2024-05-05)
DX: E11.69 Type 2 diabetes mellitus with other specified complication (principal); U07.1 COVID-19; L03.115 Cellulitis of right lower limb; L02.611 Cutaneous abscess of right foot; L97.418 Non-pressure chronic ulcer of right heel and midfoot with other specified severity; Z16.12 Extended spectrum beta lactamase (ESBL) resistance; M86.171 Other acute osteomyelitis, right ankle and foot; E11.621 Type 2 diabetes mellitus with foot ulcer; E11.42 Type 2 diabetes mellitus with diabetic polyneuropathy; I12.9 Hypertensive chronic kidney disease with stage 1 through stage 4 chronic kidney disease, or unspecified chronic kidney disease; E11.22 Type 2 diabetes mellitus with diabetic chronic kidney disease; N18.31 Chronic kidney disease, stage 3a; D64.9 Anemia, unspecified; E03.9 Hypothyroidism, unspecified; B95.61 Methicillin susceptible Staphylococcus aureus infection as the cause of diseases classified elsewhere; R82.71 Bacteriuria; Z79.84 Long term (current) use of oral hypoglycemic drugs; B95.1 Streptococcus, group B, as the cause of diseases classified elsewhere
CPT/HCPCS: J0131; J0692; P9016; Q9967; S0164